=== PATIENT | female | born 1985 | race Caucasian/White ===

== ENCOUNTER 2018-10-21 17:07 | Emergency (ER) | payer MEDICAID ==
[~2018-10-21] VITALS: Ht 167.6 cm; Wt 100.0 kg
[2018-10-21 17:32] VITALS: BP 127/69
[2018-10-21] MEDS ORDERED: orphenadrine citrate 60mg/2ml inj. IM ONE (19:20)
[2018-10-21] MEDS ORDERED: METH-360 PO (19:20)
[2018-10-21] MEDS ORDERED: NAPR-56 PO (19:20)
[2018-10-21] MEDS ORDERED: ketorolac tromethamine 15mg/ml inj. IM ONE (19:20)
== END 2018-10-21 20:20 | disposition home or self-care (01) ==
LOC: ER 17:09
DX: M25.571 Pain in right ankle and joints of right foot (principal); M54.5 Low back pain; G89.29 Other chronic pain
CPT/HCPCS: 29540; 96372; 99283; J1885; J2360

== ENCOUNTER 2020-05-07 19:34 | Emergency (ER) | payer MEDICAID ==
[~2020-05-07] VITALS: Ht 165.1 cm; Wt 93.4 kg
[~2020-05-07 19:34] MED LIST: LIDOcaine 1% W/epiNEPHrine 1:100,000 20ml vial ONE; METH-360 PO
[2020-05-07 21:12] VITALS: BP 138/58
== END 2020-05-07 21:12 | disposition home or self-care (01) ==
LOC: ER 19:34
DX: L60.0 Ingrowing nail (principal); Z79.899 Other long term (current) drug therapy
CPT/HCPCS: 11730; 99284; 99285

== ENCOUNTER 2020-05-11 20:50 | Emergency (ER) | payer MEDICAID ==
[~2020-05-11] VITALS: Ht 167.6 cm; Wt 99.0 kg
[~2020-05-11 20:50] MED LIST changes: -LIDOcaine 1% W/epiNEPHrine 1:100,000 20ml vial ONE
[2020-05-11 23:27] VITALS: BP 124/68
== END 2020-05-11 23:28 | disposition home or self-care (01) ==
LOC: ER 20:50
DX: M79.675 Pain in left toe(s) (principal); G89.29 Other chronic pain; Z48.00 Encounter for change or removal of nonsurgical wound dressing
CPT/HCPCS: 99281

== ENCOUNTER 2020-05-21 09:51 | Emergency (ER) | payer MEDICAID ==
[~2020-05-21] VITALS: Ht 167.6 cm; Wt 95.0 kg
[2020-05-21 09:58] VITALS: BP 118/53
[2020-05-21] MEDS ORDERED: LIDOcaine 1% W/epiNEPHrine 1:200,000 10ml vial IJ ONE (11:30)
[2020-05-21] MEDS ORDERED: DOXY100C43 PO (11:58)
[2020-05-21] MEDS ORDERED: acetaminophen 325mg tablet PO ONE (12:45)
[2020-05-21] MEDS ORDERED: ibuprofen tablet 400 MG TABLET PO ONE (12:45)
[2020-05-21] MEDS ORDERED: LIDOcaine 1% W/epiNEPHrine 1:100,000 20ml vial ONE (19:00)
== END 2020-05-21 14:01 | disposition home or self-care (01) ==
LOC: ER 09:52
DX: L02.412 Cutaneous abscess of left axilla (principal); G89.29 Other chronic pain; Z79.2 Long term (current) use of antibiotics; Z79.899 Other long term (current) drug therapy
CPT/HCPCS: 10060; 99283

== ENCOUNTER 2020-07-11 11:46 | Emergency (ER) | payer MEDICAID ==
[~2020-07-11] VITALS: Ht 167.6 cm; Wt 90.8 kg
[2020-07-11 12:03] VITALS: BP 132/64
[2020-07-11] MEDS ORDERED: LIDOcaine 5% patch TP STA (14:07)
[2020-07-11] MEDS ORDERED: ketorolac tromethamine 15mg/ml inj. IM ONE (14:10)
[2020-07-11] MEDS ORDERED: ACET-2006 PO (14:25)
[2020-07-11] MEDS ORDERED: LIDO700A32 TOP (14:25)
[2020-07-11] MEDS ORDERED: IBUP-1985 PO (14:25)
== END 2020-07-11 14:43 | disposition home or self-care (01) ==
LOC: ER 11:47
DX: S46.911A Strain of unspecified muscle, fascia and tendon at shoulder and upper arm level, right arm, initial encounter (principal); M54.10 Radiculopathy, site unspecified; M25.511 Pain in right shoulder; Z79.899 Other long term (current) drug therapy; X58.XXXA Exposure to other specified factors, initial encounter; Y93.89 Activity, other specified; Y92.89 Other specified places as the place of occurrence of the external cause; Y99.8 Other external cause status
CPT/HCPCS: 96372; 99283; J1885

== ENCOUNTER 2020-11-11 11:52 | Emergency (ER) | payer MEDICAID ==
[~2020-11-11] VITALS: Ht 165.1 cm; Wt 77.3 kg
[~2020-11-11 11:52] MED LIST changes: +IBUP-1985 PO; +LIDO700A32 TOP
[2020-11-11 13:04] VITALS: BP 119/71
== END 2020-11-11 19:35 | disposition left against medical advice (07) ==
LOC: ER 11:52
DX: T24.232A Burn of second degree of left lower leg, initial encounter (principal); Z53.21 Procedure and treatment not carried out due to patient leaving prior to being seen by health care provider; Y92.89 Other specified places as the place of occurrence of the external cause

== ENCOUNTER 2025-01-12 16:02 | Emergency (ER) | payer MEDICAID, OTHER ==
[~2025-01-12] VITALS: Ht 165.1 cm; Wt 97.8 kg
[~2025-01-12 16:02] MED LIST changes: -IBUP-1985 PO; +IBUP600T52 PO; +LIDO-52 TOP; -LIDO700A32 TOP
[2025-01-12 16:07] VITALS: TEMP 98.2
--- NOTE | 2025-01-12 16:48 | Physician Documentation ---
History of Present Illness ~ Chief Complaint: Anxiety Stated Complaint: MED REQUEST Time Seen by MD: 16:21 Primary Medical Doctor: NO PMD HPI This is a 39-year-old female who has significant history of anxiety who presents with an anxiety attack after a stressful situation at her place of employment today, patient reports that her normal PRN medications have not been able to con trol her anxiety, patient reports no other acute symptoms or concerns. Medication Reconciliation Allergies: Coded Allergies: No Known Allergies (Unverified , 01/12/25) Scheduled Ibuprofen (Ibuprofen), 1 TAB PO Q8H Lidocaine (Lidoderm), 1 PATCH TOP Q12H PRN Methocarbamol (Robaxin-750), 1 TAB PO HS Past Medical History Past Medical History: No Pertinent History, Chronic Pain Past Surgical History: noncontributory Drug Use: none Lives In: Home Occupation: employed Review of Systems ROS As stated above in the HPI, otherwise all systems are reviewed and negative. Physical Exam Vital Signs: Temperature: 98.2, Heart Rate: 116, Respiratory Rate: 24, BP: 158/98, Pulse Oximetry: 98, Weight: 97.800 Oxygen Flow Rate: 0 Physical Exam VITALS: Reviewed and as above. GENERAL: Alert, nontoxic appearing, no apparent distress. 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 Patient was otherwise well-appearing and treated for anxiety, it was reassuring patient reported no other acute symptoms or concerns and reported no HI or SI. Patient reported adequate response to medication in the emergency department, patient is otherwise well-appearing and appropriate for follow up with primary care provider/primary mental health provider for further management of her anxiety. Differential Dx:Considerations: Include: Anxiety, Bipolar disorder, Conversion disorder, Depression, Panic disorder, Personality disorder, Substance abuse, Suicidal Departure Time of Disposition: 19:10 Disposition: 01 HOME / SELF CARE / HOMELESS Impression: Primary Impression: Anxiety attack Condition: Improved Additional Instructions: Please use your previously prescribed medications for anxiety. Please follow up with your primary mental health prescriber for further management of your anxiety symptoms. Please follow up with your primary care provider in the next few days. Please return to the emergency department for any new or worsening concerning symptoms. Referrals: NO PRIMARY CARE PROVIDER (PCP) Education Educated: Patient Educated regarding: diagnosis, treatment, prognosis, need for follow up Signature Scribe Signature: No scribe Attestation: The note accurately reflects work and decisions made by me.JORGE Walker 01/13/25 01:36 NORRIS HUTCHINSON Jan 12, 2025 16:48
[2025-01-12 19:36] VITALS: BP 139/78; PULSE 89; RESP 15; O2SAT 97
== END 2025-01-12 19:37 | disposition home or self-care (01) ==
LOC: ER 16:05
DX: F41.0 Panic disorder [episodic paroxysmal anxiety] (principal); G89.29 Other chronic pain; Z79.899 Other long term (current) drug therapy
CPT/HCPCS: 99283